=== PATIENT | male | born 1965 ===

== ENCOUNTER 2017-02-22 07:52 | Day surgery (SDC) | payer BC ==
--- NOTE | ~2017-02-22 | EGD ---
EGD REPORT [facility] [address] [address] NAME: THEODORE ELY : [birth year] STATUS : REG [facility]#: [id number] AGE: 51 ADM/REG DATE : 02/22/17 MR#: [id number] REPORT SERV DATE: 02/22/17 DICTATED BY: ARLENE MUNOZ DATE: 02/22/17 REPORT STATUS : Draft TRANSCRIBED BY: [employer] DATE: 02/22/17 [facility] Patient Name: Theodore Ely. Date of : 1965 Attending MD: ARLENE MUNOZ MD Procedure Date No Time: 02/22/2017 Procedure: Colonoscopy Indications: Screening for colorectal malignant neoplasm Medicines: as per anesthesia Complications: No immediate complications. Procedure: Pre-Anesthesia Assessment: - ASA Grade Assessment: I - A normal, healthy patient. After I obtained informed consent, the scope was passed under direct vision. Throughout the procedure, the patient's blood pressure, pulse, and oxygen saturations were monitored continuously. The PCF [id number] was introduced through the anus and advanced to the cecum, identified by appendiceal orifice and ileocecal valve. The colonoscopy was performed without difficulty. The patient tolerated the procedure. The quality of the bowel preparation was fair. Findings: The perianal and digital rectal examinations were normal. The colon (entire examined portion) appeared normal. Impression: - The entire examined colon is normal. Recommendation: - Repeat colonoscopy in 10 years for surveillance. Procedure Code(s): --- Professional --- 93835, Colonoscopy, flexible, proximal to splenic flexure; diagnostic, with or without collection of specimen(s) by brushing or washing, with or without colon decompression (separate procedure) Diagnosis Code(s): --- Professional --- Z12.11, Encounter for screening for malignant neoplasm of colon CPT copyright 2013 [employer]. All rights reserved. The codes documented in this report are preliminary and upon outside industrial sales representative review may be revised to meet current compliance requirements. EGD REPORT [facility] [address] [address] NAME: THEODORE ELY : [birth year] STATUS : REG [facility]#: [id number] AGE: 51 ADM/REG DATE : 02/22/17 MR#: [id number] REPORT SERV DATE: 02/22/17 DICTATED BY: ARLENE MUNOZ. DATE: 02/22/17 REPORT STATUS : Draft TRANSCRIBED BY: [employer] DATE: 02/22/17 ARLENE MUNOZ MD 02/22/2017 9:40 AM This report has been signed electronically. Number of Addenda: 0 Note Initiated On: 02/22/2017 9:13 AM Scope Withdrawal Time 0 hours 6 minutes 17 seconds [address] [address]
== END 2017-02-22 23:59 | disposition home health service (06) ==
LOC: DMU 07:52
PROVIDERS: Internal Medicine Gastroenterology
PROC: 0DJD8ZZ Inspection of Lower Intestinal Tract, Via Natural or Artificial Opening Endoscopic (ICD-10-PCS; principal; 2017-02-22 09:00)
DX: Z12.11 Encounter for screening for malignant neoplasm of colon (principal); Z98.890 Other specified postprocedural states